=== PATIENT | male | born 1985 | race Caucasian/White ===

== ENCOUNTER 2024-10-03 07:09 | Outpatient (CLI) | payer OTHER ==
[~2024-10-03 07:09] MED LIST: CYCL-1 PO; LOPE1TAB46 PO
== END 2024-10-03 23:59 | disposition home or self-care (01) ==
LOC: MRI02 07:09
PROVIDERS: ATTEND Physician Assistant Medical
DX: M16.12 Unilateral primary osteoarthritis, left hip (principal); M87.052 Idiopathic aseptic necrosis of left femur; M25.852 Other specified joint disorders, left hip; M25.559 Pain in unspecified hip
CPT/HCPCS: 73721